=== PATIENT | male | born 1975 | race Caucasian/White ===

== ENCOUNTER → 2016-08-27 | Outpatient (CLI) | payer BC | LOC: COL.LAB 10:26 | DX: Z01.812 Encounter for preprocedural laboratory examination (principal); M25.852 Other specified joint disorders, left hip ==

== ENCOUNTER → 2020-10-04 | Outpatient (CLI) | payer BC | LOC: COL.RAD 09:54 | DX: M75.111 Incomplete rotator cuff tear or rupture of right shoulder, not specified as traumatic (principal); M67.813 Other specified disorders of tendon, right shoulder; S43.431A Superior glenoid labrum lesion of right shoulder, initial encounter; S43.401A Unspecified sprain of right shoulder joint, initial encounter; M75.51 Bursitis of right shoulder ==

== ENCOUNTER 2020-12-12 09:00 | Outpatient (RCR) | payer BC | END 2021-01-19 | disposition still patient (30) | LOC: WSC | DX: M25.511 Pain in right shoulder (principal) ==